=== PATIENT | male | born 1965 | race African-American/Black ===

== ENCOUNTER 2019-02-14 06:27 | Day surgery (SDC) | payer OTHER ==
[2019-02-07 12:32] VITALS: BMI 28.1
[2019-02-14] MEDS ORDERED: PROPOFOL 20 ML ONE ×3 (07:03→08:32)
[2019-02-14] MEDS ORDERED: MIDAZOLAM HCL 2 MG/2 ML SINGLE DOSE VIAL ONE ×2 (07:03→07:10)
[2019-02-14] MEDS ORDERED: ROPIVACAINE HCL 0.5% 30ML VIAL ONE (07:10)
[2019-02-14] MEDS ORDERED: ALBUTEROL SO4 8 GM HFA INHALER IH ONE (07:41)
[2019-02-14] MEDS ORDERED: ceFAZolin SODIUM 1 GM VIAL ONE (08:01)
[2019-02-14] MEDS ORDERED: TRANEXAMIC ACID 1000 MG/10 ML VIAL ONE (08:10)
[2019-02-14] MEDS ORDERED: IBUPROFEN 400 MG TABLET (FP) PO PRN (10:17)
[2019-02-14] MEDS ORDERED: oxyCODONE HCL 5 MG TABLET PO PRN ×3 (10:17→10:45)
--- NOTE | 2019-02-14 10:23 | OPR ---
Date of Procedure: 02/14/2019 Procedure: 1. Right distal biceps tendon repair (54774) Preoperative Diagnoses: 1. Right distal biceps tendon rupture. Postoperative Diagnoses: 1. Right distal biceps tendon rupture. Surgeon: Andre Deshpande DO Assistants: Royce Casas DO Anesthesia: Regional block with sedation. Estimated Blood Loss: Minimal Drains: None Total IV Fluids: Per anesthesia record Specimens: None Implants: Arthrex distal biceps button Tourniquet time: 60 minutes Complications: None Disposition: PACU Condition: Hemodynamically stable Indications: David Watkins presented to us with right anterior elbow pain after history of an eccentric muscle contraction and traumatic popping sensation. His symptoms, signs, and imaging were consistent with a distal biceps tendon rupture. He ultimately elected to proceed with surgical intervention after discussion of the risks, benefits, alternatives. We discussed risks including but not limited to, bleeding, pain, infection, stiffness, scarring, recurrence, damage to neurovascular structures, blood clots , pulmonary embolus, need for additional surgery, incomplete relief of pain, and incomplete return of function. He expressed understanding and wished to proceed. He underwent preoperative medical evaluation clearance and optimization prior to surgery. Procedure Details: He was identified in the preoperative area. The elbow was marked as the operative site and consent was completed and confirmed. A regional block was peformed by the anesthesia team. He was later transferred to the operating room and placed in the supine position on the operating room table, with the arm abducted on an arm board. Care was taken to pad all bony prominences. SCDs were placed over the bilateral lower extremities. A tourniquet was placed high on the arm. The upper extremity was prepped and draped in standard sterile fashion. A surgical time-out was performed identifying the correct patient, procedure, and site. Antibiotics were given within 1 hour prior to surgical incision. Distal biceps tendon repair: A longitudinal incision was made over the proximal forearm distal to the antecubital fossa. Care was taken to avoid the branches of the lateral antebrachial cutaneous nerve. The torn biceps tendon was located and dissected free from scar tissue. A locking stitch using #2 FiberWire was placed in the distal 2.5 cm of the tendon. The tendon was measured to be 7 mm in diameter. The radial tuberosity was exposed through the interval between the brachioradialis and pronator teres. The patients forearm was maintained in maximal supination. Residual soft tissue remaining on the tuberosity was debrided to cortical bone. The radial tuberosity was marked with a guide pin and confirmed. After proper position was confirmed with fluoroscopy, an 8 mm reamer was used to ream a unicortical bone tunnel. The tendon was then fixed within the tunnel using a distal biceps button. Fluoroscopy was used to confirm that there was appropriate fixation of the button on the far cortex of the radius. This was then secured and the suture was locked through the distal tendon. The tourniquet was let down and adequate hemostasis was obtained. Wound closure: The wounds were then thoroughly irrigated and closed using inverted 3-0 Vicryl, 4-0 Monocryl subcuticular stitch, and Dermabond skin glue. The elbow was sterilely dressed with 4x4s, ABD pads, and Webril and placed into a well-padded posterior splint at 90 degrees of flexion. The upper extremity was then placed into a sling. The patient was awakened from sedation and transferred to the PACU in stable condition. Post-operative Details: I spoke with the family regarding the operation after surgery. Postoperative rehabilitation: Acute Distal Biceps Repair Protocol: The patient will remain in a supinated posterior splint for 2 weeks. The patient will then be converted to a hinged elbow brace for 4 weeks. AROM elbow extension and PROM elbow flexion may begin immediately in the brace; AROM elbow flexion may begin at 4 weeks. Supination and pronation are performed with the elbow in full flexion for the first 4 weeks to avoid excessive tension on the repair. From 2-6 weeks, there will be a 5 pound lifting restriction. From 6-12 weeks, there will be a 10 pound lifting restriction. From 12-16 weeks, there will be a 20 pound lifting restriction. Strengthening may begin at 8 weeks with gentle resistance, with progression to full resistance at 12 weeks. Return to sports and/or heavy labor is delayed until 4-6 months postoperatively. Attestation for photo studio assistant: Dr. Royce Casas DO acted as the photo studio assistant. There was no qualified resident or physician cafeteria assistant available to do so.
[2019-02-14] MEDS ORDERED: ONDANSETRON 4 MG/2 ML VIAL ONE (10:36)
[2019-02-14] MEDS ORDERED: PROMETHAZINE HCL 25 MG/1 ML VIAL IVPUSH PRN (10:45)
[2019-02-14] MEDS ORDERED: ONDANSETRON 4 MG/2 ML VIAL IVPUSH PRN (10:45)
[2019-02-14 12:59] VITALS: BP 132/86; PULSE 60; TEMP 97.8
== END 2019-02-14 12:45 | disposition home or self-care (01) ==
LOC: FASU 06:27
PROVIDERS: ATTEND Orthopaedic Surgery
PROC: 0LM30ZZ Reattachment of Right Upper Arm Tendon, Open Approach (ICD-10-PCS; principal; 2019-02-14 08:30)
DX: S46.211A Strain of muscle, fascia and tendon of other parts of biceps, right arm, initial encounter (principal); X58.XXXA Exposure to other specified factors, initial encounter; Y93.89 Activity, other specified; Y92.9 Unspecified place or not applicable
CPT/HCPCS: 73060-TC-RT-FY; 82962; 94760